=== PATIENT | female | born 1980 | race Two or more races ===

== ENCOUNTER 2019-08-23 13:52 | Emergency (ER) | payer MEDICAID, OTHER | END 2019-08-23 14:51 | disposition left against medical advice (07) | LOC: ER 13:56 | DX: R51 Headache (principal); Z53.21 Procedure and treatment not carried out due to patient leaving prior to being seen by health care provider ==

== ENCOUNTER 2019-08-26 09:58 | Emergency (ER) | payer MEDICAID ==
[~2019-08-26] VITALS: Ht 162.6 cm; Wt 55.6 kg
[2019-08-26 10:39] VITALS: BP 101/46
== END 2019-08-26 11:44 | disposition home or self-care (01) ==
LOC: ER 09:58
DX: L02.413 Cutaneous abscess of right upper limb (principal); J06.9 Acute upper respiratory infection, unspecified; F17.210 Nicotine dependence, cigarettes, uncomplicated; F15.10 Other stimulant abuse, uncomplicated
CPT/HCPCS: 10060

== ENCOUNTER 2022-01-31 17:51 | Emergency (ER) | payer MEDICAID ==
[2022-01-31 18:00] VITALS: BP 103/58
[2022-01-31] MEDS ORDERED: KETOROLAC TROMETH 30 MG/ML 1ML VIAL IV ONE (18:00)
[2022-01-31] MEDS ORDERED: SODIUM CHLORIDE 0.9% 1,000 ML IVB ONE (18:00)
[2022-01-31] MEDS ORDERED: ONDANSETRON HCL 4 MG/2 ML VIAL IV ONE (18:00)
== END 2022-01-31 21:19 | disposition left against medical advice (07) ==
LOC: ER 17:51 → EDBD 17:51 → ER 21:19
DX: M54.50 Low back pain, unspecified (principal); R10.9 Unspecified abdominal pain; F17.210 Nicotine dependence, cigarettes, uncomplicated; F15.10 Other stimulant abuse, uncomplicated; Z98.51 Tubal ligation status; Z88.0 Allergy status to penicillin

== ENCOUNTER → 2022-04-18 | Emergency (ER) | payer MEDICAID ==
[~2022-04-18] VITALS: Ht 162.6 cm; Wt 55.0 kg
[~2022-04-18] MED LIST: LORazepam 0.5 MG TAB PO ONE
[2022-04-18 13:30] VITALS: BP 120/72
== END | disposition home or self-care (01) ==
LOC: ER 13:21
DX: S09.8XXA Other specified injuries of head, initial encounter (principal); M54.2 Cervicalgia; F41.9 Anxiety disorder, unspecified; F15.10 Other stimulant abuse, uncomplicated; Z98.51 Tubal ligation status; Z88.0 Allergy status to penicillin; V00.128A Other non-in-line roller-skating accident, initial encounter; Y93.51 Activity, roller skating (inline) and skateboarding; Y92.89 Other specified places as the place of occurrence of the external cause; Y99.8 Other external cause status
CPT/HCPCS: 70450; 72125

== ENCOUNTER → 2024-06-07 | Emergency (ER) | payer MEDICAID ==
[~2024-06-07] VITALS: Ht 162.6 cm; Wt 61.8 kg
[2024-06-07 17:47] VITALS: BP 105/55; PULSE 96; RESP 20; O2SAT 98
== END | disposition left against medical advice (07) ==
LOC: EDBD 17:34 → ER 17:34 → EDUNIT# 17:34
DX: M54.9 Dorsalgia, unspecified (principal); Z53.21 Procedure and treatment not carried out due to patient leaving prior to being seen by health care provider